=== PATIENT | female | born 1975 | race Caucasian/White ===

== ENCOUNTER 2022-11-21 11:00 | Emergency (ER) | payer OTHER, BC ==
--- OUTSIDE RECORDS SUMMARY | 2022-11-21 11:04 | XMS REPORT | Continuity of Care Document ---
:1975 Author Organization Formerly [facility] t Address [address] [place] [address] [address] [place] [address] Care Team Providers Name Role Phone Unknown, Physician Primary Care Physician Unavailable CATHY BARBOSA Attending Clinician Unavailable LISA BALDERAS Attending Clinician Unavailable Mary Lou Ricci Attending Clinician Payers Payer Name Policy Type Policy Number Effective Date Expiration Date S ource [id number] PPO AND [id number] 2009 00:00:00 OUT OF STATE Problems Condition Condition Condition Status Onset Resolution Last Treating Co mments Source Name Details Category Date Date Treatment Clinician Date Arthritis Arthritis Disease Active 0 [facility] of finger of finger 5-11 [facility] left of left 00:00: hand hand 00 Arthritis Arthritis Disease Active 2020-0 [facility] of finger of finger 5-11 [facility] of right of right 00:00: hand hand 00 Allergies, Adverse Reactions, Alerts This patient has no known allergies or adverse reactions. Social History Social Habit Start Date Stop Date Quantity Comments Source Exposure to 2022-06-25 2022-07-05 Not sure [facility] SARS-CoV-2 (event) 00:00:00 07:57:00 Alcohol intake 2021-07-04 2021-07-04 Current drinker of [facility] 00:00:00 00:00:00 alcohol (finding) Tobacco use and 2021-01-17 2021-01-17 Smokeless tobacco [facility] exposure 00:00:00 00:00:00 non-user Sex Ass[birth year] At [birth year] [facility] 00:00:00 00:00:00 Smoking Status Start Date Stop Date Source Never smoked tobacco [facility] Medications Ordered Filled Start Stop Current Ordering Indication Dosage Frequency Signature Comments Components Source Medication Medication Date Date Medication? Clinician (SIG) Name Name acetaminoph Yes 1617 1{tbl} Q6H Take 1 [facility] en-codeine 1-18 tablet by [facility] (Tylenol w/ 00:00: mouth Codeine #3) 00 every 6 300-30 MG (six) tablet hours if needed for moderate pain. acetaminoph Yes 1617 1{tbl} Q6H Take 1 [place] en-codeine 1-18 tablet by [facility] (Tylenol w/ 00:00: mouth Codeine #3) 00 every 6 300-30 MG (six) tablet hours if needed for moderate pain. acetaminoph 0 Yes 1617 1{tbl} Q6H Take 1 [place] en-codeine 1-18 tablet by [facility] (Tylenol w/ 00:00: mouth Codeine #3) 00 every 6 300-30 MG (six) tablet hours if needed for moderate pain. ibuprofen 2021- No [id number] 800mg [id number] Take 1 UT 800 MG -18 18 [id number] tablet He alth tablet 00:00: 04:59 3D (800 mg 00 :00 total) by mouth 3 (three) times a day. amphetamine Yes [facility] -dextroamph 4-24 Health etamine XR 00:00: (Adderall 00 XR) 20 MG 24 hr capsule amphetamine 2020-0 Yes [facility] -dextroamph 4-24 Health etamine XR 00:00: (Adderall 00 XR) 20 MG 24 hr capsule amphetamine 2020-0 Yes [facility] -dextroamph 4-24 Health etamine XR 00:00: (Adderall 00 XR) 20 MG 24 hr capsule amphetamine 2020-0 Yes [facility] -dextroamph 4-24 Health etamine XR 00:00: (Adderall 00 XR) 20 MG 24 hr capsule amphetamine 2020-0 Yes UT -dextroamph 4-24 Health etamine XR 00:00: (Adderall 00 XR) 20 MG 24 hr capsule amphetamine 0 Yes UT -dextroamph 4-24 Health etamine XR 00:00: (Adderall 00 XR) 20 MG 24 hr capsule amphetamine 0 Yes UT -dextroamph 4-24 Health etamine XR 00:00: (Adderall 00 XR) 20 MG 24 hr capsule valACYclovi 0 Yes UT r (Valtrex) 4-15 Health 1 g tablet 00:00: 00 valACYclovi 2020-0 Yes [facility] r (Valtrex) 4-15 Health 1 g tablet 00:00: 00 valACYclovi 2020-0 Yes [facility] r (Valtrex) 4-15 Health 1 g tablet 00:00: 00 valACYclovi 2020-0 Yes [facility] r (Valtrex) 4-15 Health 1 g tablet 00:00: 00 valACYclovi 0 Yes UT r (Valtrex) 4-15 Health 1 g tablet 00:00: 00 valACYclovi 2020-0 Yes UT r (Valtrex) 4-15 Health 1 g tablet 00:00: 00 valACYclovi 2020-0 Yes UT r (Valtrex) 4-15 Health 1 g tablet 00:00: 00 levothyroxi 2020-0 Yes [facility] ne 3-05 Health (Synthroid, 00:00: Levoxyl) 00 125 MCG tablet buPROPion 2020-0 Yes [facility] (Wellbutrin 3-05 Health ) 100 MG 00:00: tablet 00 levothyroxi 2020-0 Yes [facility] ne 3-05 [facility] (Synthroid, 00:00: Levoxyl) 00 125 MCG tablet buPROPion 2020-0 Yes [facility] (Wellbutrin 3-05 Health ) 100 MG 00:00: tablet 00 levothyroxi 2020-0 Yes [facility] ne 3-05 Health (Synthroid, 00:00: Levoxyl) 00 125 MCG tablet buPROPion 2020-0 Yes [facility] (Wellbutrin 3-05 Health ) 100 MG 00:00: tablet 00 levothyroxi 2020-0 Yes [facility] ne 3-05 [facility] (Synthroid, 00:00: Levoxyl) 00 125 MCG tablet buPROPion 2020-0 Yes [facility] (Wellbutrin 3-05 Health ) 100 MG 00:00: tablet 00 levothyroxi 2021-0 Yes [facility] ne 3 Health (Synthroid, 00:00: Levoxyl) 00 125 MCG tablet buPROPion Yes UT (Wellbutrin 11-11 Health ) 100 MG 00:00: tablet 00 levothyroxi Yes UT ne 305 Health (Synthroid, 00:00: Levoxyl) 00 125 MCG tablet buPROPion Yes UT (Wellbutrin 11-11 Health ) 100 MG 00:00: tablet 00 levothyroxi Yes UT ne 3 Health (Synthroid, 00:00: Levoxyl) 00 125 MCG tablet buPROPion Yes UT (Wellbutrin 11-11 Health ) 100 MG 00:00: tablet 00 Vital Signs Vital Name Observation Time Observation Value Comments Source Body height 2021-07-04 13:34:00 167.6 cm [facility] weight 2021-07-04 13:34:00 65.772 kg [facility] BMI 2021-07-04 13:34:00 23.40 kg/m2 [facility] Body height 2021-01-17 15:01:00 167.6 cm [facility] weight 2021-01-17 15:01:00 65.772 kg [facility] BMI 2021-01-17 15:01:00 23.40 kg/m2 [facility] Procedures Procedure Date / Time Performed Performing Clinician Sour e XR HAND 3+ VIEWS LEFT 2021-07-04 13:44:20 Cathy Barbosa [facility] Encounters Start End Encounter Admission Attending Care Care Encounter Source Date/Time Date/Time Type Type Clinicians Facility Department ID 2022-08-30 Outpatient [facility] [id number] [place] 07:43:59 [id number] [facility] 2022-07-05 Outpatient [facility] [id number] [place] 09:06:00 [id number] [facility] 2022-07-03 Outpatient [facility] [id number] [place] 08:15:40 [id number] [facility] 2021-09-21 Outpatient FAMILIA [facility] [id number] [place] 10:47:52 CATHY 2021-07-04 Outpatient [facility] [id number] [place] 08:36:58 Health 2022-08-17 2022-08-17 Outpatient LEVY, [facility] [id number] [place] 14:00:00 14:00:00 [facility] 2022-07-05 2022-07-05 Office Levy, [facility] [id number] [place] 09:00:00 09:58:05 Visit [facility] [id number] Health IRONMAN [id number] SMI [id number] 2022-07-05 2022-07-05 Outpatient [facility] [id number] [place] 09:00:00 09:00:00 Health 2022-04-05 2022-04-05 Office Levy, [facility] [id number] [place] 08:15:00 08:46:28 Visit [facility] [id number] Health IRONMAN [id number] SMI [id number] 2022-04-05 2022-04-05 Outpatient [facility] [id number] [place] 00:00:00 08:46:28 Health 2022-03-08 2022-03-08 Office Levy, [facility] [id number] [place] 07:30:00 07:55:04 Visit [facility] [id number] Health IRONMAN [id number] SMI [id number] 2021-09-13 2021-09-13 Outpatient FBCOVID FBCOVID [id number] FBCOVID 00:00:00 00:00:00 [id number] 2021-07-06 2021-07-06 EXT [facility] OP Koepplinger EXT MSRDP [id number] [place] 00:00:00 00:00:00 , Cathy LOCATION [id number] Health [id number] 2021-07-06 2021-07-06 EXT MH OP Koepplinger EXT MSRDP [id number] [place] 00:00:00 00:00:00 , Cathy LOCATION [id number] Health [id number] 2021-07-04 2021-07-04 Office Familia WOODS [id number] [place] 08:11:46 09:05:37 Visit , Cathy PHYSICIAN [id number] Health S [id number] ORTHOPEDI [id number] HUSSAIN BONE 1 2021-01-17 2021-01-17 Office CHUCK Nolen [id number] [place] 09:48:00 10:33:11 Visit Mary Lou PHYSICIAN 350.1..58 Health S [id number] ORTHOPEDI [id number] HUSSAIN - LIZANDRO 1 Results This patient has no known results.
[2022-11-21 12:34] LABS: Absolute Lymphocytes (CBC) 0.7 K/uL (0.7-4.9); Hematocrit 33.6 % (36.0-45.0); Lymphocytes % 17.7 % (15.3-44.8); MCV 96.1 fL (80-100); MPV 7.5 fL (7.6-11.3)
[2022-11-21 12:36] LABS: Urine Blood Negative (Negative); Urine Glucose Negative (Negative); Urine Protein 2+ (Negative); Urine pH 8.5 (5.0-7.0)
[2022-11-21 13:02] LABS: Albumin 3.7 g/dL (3.4-5.0); Bilirubin Total 0.2 mg/dL (0.2-1.0); Potassium 3.9 mmol/L (3.5-5.1); Protein, Total 7.2 g/dL (6.4-8.2)
--- NOTE | 2022-11-21 13:21 | RAD REPORT ---
EXAM DESCRIPTION: CTAbdomen Pelvis W Contrast - 11/21/2022 1:12 pm CLINICAL HISTORY: Abdominal pain. ABD PAIN COMPARISON: No comparisons TECHNIQUE: Biphasic CT imaging of the abdomen and pelvis was performed with 100 ml non-ionic IV cont rast. All CT scans are performed using dose optimization technique as appropriate and may include automated exposure control or mA/KV adjustment according to patient size. FINDINGS: The lung bases are clear. The liver contains multiple benign cysts. Spleen, pancreas, adrenal glands and kidneys are within nor mal limits. No bowel obstruction, free air, free fluid or abscess. The appendix is normal. No evidence of signi ficant lymphadenopathy. No suspicious bony findings. IMPRESSION: No acute intra-abdominal or pelvic finding.
[2022-11-21] MEDS ORDERED: NA CHLORIDE 0.9% 1,000 ML ONE (14:02)
[2022-11-21] MEDS ORDERED: ONDANSETRON 4 MG/2 ML VIAL ONE (14:02)
[2022-11-21] MEDS ORDERED: LORazepam 2 MG/ML VIAL ONE (14:02)
--- NOTE | 2022-11-21 14:29 | RAD REPORT ---
EXAM DESCRIPTION: US - Abdomen Exam Limited - 11/21/2022 2:05 pm CLINICAL HISTORY: PAIN COMPARISON: Abdomen Pelvis W Contrast dated 11/21/2022 FINDINGS: Gallbladder is contracted due to recent meal. . The common bile duct is normal measuring 3 mm. The liver demonstrates several cysts. IMPRESSION: Gallbladder contraction due to recent meal.
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
== END 2022-11-21 15:41 | disposition home or self-care (01) ==
LOC: ER 11:00
DX: R10.12 Left upper quadrant pain (principal); D64.9 Anemia, unspecified; R79.89 Other specified abnormal findings of blood chemistry; R11.2 Nausea with vomiting, unspecified; M54.2 Cervicalgia; V49.59XA Passenger injured in collision with other motor vehicles in traffic accident, initial encounter; E03.9 Hypothyroidism, unspecified
CPT/HCPCS: 85025; 36415; 81025; 81003; 83690; 80053; 74177; 76705; Q9967; J2405; J7030